=== PATIENT | male | born 1985 | race Caucasian/White ===

== ENCOUNTER 2020-06-23 22:51 | Emergency (ER) | payer MEDICAID, SELFPAY ==
[2020-06-23 22:53] VITALS: BP 171/98; PULSE 74; RESP 20; TEMP 36.7; O2SAT 95; BMI 24.3
--- NOTE | 2020-06-23 23:37 | ED.DCSUM_ITS ---
History of Present Illness Chief Complaint: Overdose Narrative: Patient presenting for evaluation secondary to an overdose. Patient is unsure if he took anything, states that he did not take anything, and reports that he was drinking ice tea from an orange bottle. Patient apparently was found unresponsive EMS was contacted and he responded to 2 doses of naloxone. Patient denies being suicidal or homicidal. Patient does report that he is feeling chilled and nauseous. He tells me that he is been sober since he was let out Past Medical History - Allergies and Home Meds Allergies/Adverse Reactions: Allergies propoxyphene napsylate [From Darvocet-N 100] Allergy (Verified 06/23/20 22:52) Hives Primary Care Physician: Care Physician,No Primary [Primary Care Provider] - Prior records reviewed: Yes Past Medical History: - - Past history of opiate abuse Smoking Status: Current every day smoker Drugs: Heroin Review of Systems All systems negative except as indicated General: Reports: Chills Eyes: Denies: Visual changes - bilaterally, Diplopia ENT: Denies: Rhinorrhea, Sore throat Cardiovascular: Denies: Chest pain, Palpitations Respiratory: Denies: Dyspnea, Cough, Dyspnea on exertion Gastrointestinal: Reports: Nausea Genitourinary: Denies: Dysuria, Hematuria, Frequency Musculoskeletal: Denies: Back pain, Extremity Pain Skin: Denies: Rash, Wounds Neurological: Denies: Headache, Weakness, Numbness Physical Exam Vital Signs/Narrative: Vital Signs Temp Pulse Resp BP Pulse Ox 06/23/20 22:53 98.0 F 74 20 H 171/98 H 95 General: Well nourished, Well developed Head: Normocephalic, Atraumatic Eyes: EOMI ENT: Moist mucous membranes Cardiovascular: Regular rate Respiratory: No distress Extremities: Nontender Skin: Normal color, No rash Neurological: Alert, Oriented x3, Normal Strength, Normal Sensation Psychological: Normal affect Diagnostic/Tx/Re-eval - Medical Decision Making Patient presented after an opiate overdose. Patient will be observed in the emergency department for 90 minutes. Should he not require any supplemental oxygen or repeat doses of naloxone he will be discharged with outpatient follow- up for opiate dependence. Prior to the patient's full observation. He reports that he wishes to sign out AGAINST MEDICAL ADVICE he is not currently intoxicated and he has decision- making capacity. ED Disposition - Plan for ED Patient: Disposition: Against Medical Advice Diagnosis: Opiate overdose Instructions: ED Overdose Opiate Additional Instructions: Followup with [id number] [place] [address]
--- NOTE | 2020-06-23 23:52 | ED.RN ---
RN TO BEDSIDE TO APPLY PULSE OX. PT STATES THAT HE WANTS TO LEAVE. RN EXPLAINED THE IMPORTANCE OF BEING MONITORED AFTER RECEIVING NARCAN AND THE PATIENT STATES HE STILL WANTS TO LEAVE. RN NOTIFIED DR. BOWLES. DR BOWLES AT THE BEDSIDE TO EXPLAIN THE IMPORTANCE OF MONITORING. PT STILL WANTS TO LEAVE.
== END 2020-06-23 23:58 | disposition left against medical advice (07) ==
LOC: ED 23:48
PROVIDERS: Emergency Provider Emergency Medicine
DX: T40.601A Poisoning by unspecified narcotics, accidental (unintentional), initial encounter (principal); R11.0 Nausea; Y92.9 Unspecified place or not applicable; F17.200 Nicotine dependence, unspecified, uncomplicated
CPT/HCPCS: 99283; 99285

== ENCOUNTER 2021-11-05 09:12 | Emergency (ER) | payer MEDICAID, SELFPAY ==
[2021-11-05 09:13] VITALS: BP 157/97; PULSE 111; RESP 18; TEMP 36.6; O2SAT 99; BMI 24.3
--- NOTE | 2021-11-05 09:28 | VDLE_ITS ---
Reason For Study: pain RIGHT GSV is normal. CFV is compressible, spontaneous, phasic, competent and demonstrates normal augmentation. FV is compressible, spontaneous, phasic, competent and demonstrates normal augmentation. POP V is compressible, spontaneous, phasic, competent and demonstrates normal augmentation. T/P Trunk is compressible. PTV is compressible. RT PerV is compressible. Procedure This is a venous duplex using B-mode, color flow and spectral Doppler. Exam performed portable in ED. The exam was abbreviated due to the COVID 19 protocol. The exam was diagnostic. A preliminary report was called and/or faxed to ED staff. VL/Venous Duplex US, Unilateral Interpretation Summary Deep veins of the right lower extremity are patent and compressible segmentally . There is no evidence of right lower extremity deep vein thrombosis. Valvular competence stevo ears intact within the proximal deep venous system on the right . The right great saphenous vein a ppears patent and compressible segmentally. Ordering Physician: Sidney Neal Performed By: Tashi Greer RVT
--- NOTE | 2021-11-05 09:29 | EKG12_ITS ---
Test Reason : Blood Pressure : / mmHG Vent. Rate : 083 BPM Atrial Rate : 083 BPM P-R Int : 146 ms QRS Dur : 090 ms QT Int : 376 ms P-R-T Axes : 060 079 058 degrees QTc Int : 441 ms Normal sinus rhythm Normal ECG Confirmed by DAYSI BOWMAN, MORELIA ([id number]), assistant editor ARLET ANSARI ([id number]) on 11/09/2021 11:12:34 AM Referred By: GIOVANNY Confirmed By:MORELIA TAVAREZ MD
--- NOTE | 2021-11-05 09:31 | ED.VIS.LOWEX ---
HPI History of Present Illness HPI Narrative: Patient who denies significant past medical history presents with right foot pain and swelling along with redness that has had for at least 3 days. He states his symptoms began 3 days ago with numbness of his second toe and redness at the base. He was seen at [facility] where he states they performed x-rays and were going to admit him overnight for antibiotics, but he states he had to go to work so declined. While they wrote him a prescription for antibiotics he has been unable to pick them up from the pharmacy. He denies any fevers or chills. No nausea or vomiting. No other symptoms with the exception of his right foot becoming more red, swollen, and painful. He took Motrin a few days ago without relief of his symptoms. 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 He denies any historical trauma. Pain is worse with standing and walking, but is constant. Chief Complaint: Lower Extremity Injury PFSH PFS Medical History no medical history Home Medications ibuprofen 800 mg PO Q6H PRN #20 tab 11/05/21 [Rx Last Taken Unknown] sulfamethoxazole-trimethoprim [Bactrim DS] 1 tab PO BID #20 tab 11/05/21 [Rx Last Taken Unknown] Allergy/AdvReac Type Severity Reaction Status Date / Time propoxyphene napsylate Allergy Hives Verified 11/05/21 09:15 [From [facility]-N 100] Family History no significant family his Surgical History no surgical history Social History Smoking Status: Current every day smoker tobacco type: cigarettes ROS ROS ED ROS Narrative Constitutional: No fever, no chills. HEENT: No sore throat. No neck pain. No loss of vision. No rhinorrhea. Cardiovascular: No chest pain. No palpitations. No pedal edema. Respiratory: No cough, no shortness of breath. Abdominal: No abdominal pain. No nausea. No vomiting. Genitourinary: No dysuria. No hematuria. Musculoskeletal: No myalgias. No arthralgias. Neurologic: No headaches. No dizziness. No lightheadedness. Skin: No rash. Redness to right foot at base of toes and midfoot. Psychiatric: No depression. No anxiety. EXAM Physical Exam Narrative Exam Narrative: Afebrile. Vital signs noted. Nontoxic-appearing. HEENT: Normocephalic. Atraumatic. PERRL, EOMI. Neck soft and supple. No point tenderness or step off. Cardiovascular: Tachycardia, regular. No murmurs, rubs, or gallops appreciated. Respiratory: No tachypnea. Lungs clear to auscultation bilaterally. Gastrointestinal: Abdomen soft, nontender, with normoactive bowel sounds. No rebound or guarding. Neurological: Awake. Alert. Nonfocal, nonlateralizing. Skin: No rash. Positive erythema at base of second, third, and fourth toes on his right foot. Positive erythema diffusely right foot laterally, with concentration over the tarsal bones. No pallor. Musculoskeletal: Right sided pedal edema. No pain of calf. Dopplerable dorsalis pedis pulse (by RN) Psychiatric: Tearful on examination. Const Vital Signs: 11/05/21 09:13 11/05/21 10:44 11/05/21 11:25 Temperature 97.9 F 98.9 F Temperature Source Temporal Temporal Pulse Rate 111 H 82 77 Respiratory Rate 18 10 L Blood Pressure 157/97 H 134/79 H 132/92 H Blood Pressure Mean 117 97 105 Pulse Ox 99 98 Oxygen Delivery Method Room Air Room Air MDM MDM MDM Narrative Medical decision making narrative: Concern is more for cellulitis. Sepsis work-up was pursued. He has normal white count of 8.9, hemoglobin 11.4. Platelet count is normal at 225. Lactic acid is normal. Blood cultures are pending. His pulse has come down to 82, and his EKG demonstrates normal sinus rhythm at 83 bpm without ectopy or acute ST changes. Basic metabolic panel is grossly unremarkable. In discussion with the patient, after he received Toradol, he states that his pain has improved. 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 He states that they are at the drug [facility] [place]. He did receive intravenous antibiotics here in the form of vancomycin and Zosyn. Given his negative work-up here, I do feel that he would be able to be discharged safely home after the venous ultrasound of his right lower extremity. The ultrasound of the right lower extremity is negative. There is no evidence of DVT. Upon repeat examination, he is resting comfortably. He has a normal heart rate. 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 I also called in a prescription for naproxen for him and another prescription for antibiotics in the form of Bactrim. Return instructions to the emergency department were reviewed. I feel he can be discharged safely home with follow-up. He was referred to Dr. Porter who is on-call for outpatient no doc. Disposition is discharged home in stable condition. Lab Data Attestation: I reviewed the patient's lab results. Labs: Laboratory Results - last 24 hr 11/05/21 11/05/21 11/05/21 09:47 09:47 09:47 WBC 8.9 RBC 3.82 L Hgb 11.4 L Hct 35.3 L MCV 92.4 MCH 29.8 MCHC 32.3 RDW Std Deviation 45.0 H RDW Coeff of Han 13.2 Plt Count 225 MPV 9.5 Immature Gran % (Auto) 0.300 Neut % (Auto) 70.4 H Lymph % (Auto) 19.5 Cass % (Auto) 8.1 Eos % (Auto) 1.5 Baso % (Auto) 0.2 Absolute Neuts (auto) 6.2 Absolute Lymphs (auto) 1.73 Nucleated RBC % 0 Sodium 137 Potassium 3.7 Chloride 102 Carbon Dioxide 31.0 Anion Gap 4 L BUN 7 Creatinine 0.85 Estim Creat Clear Calc 114.00 Est GFR (MDRD) Af Amer 130 Est GFR (MDRD) Non-Af 107 BUN/Creatinine Ratio 8.3 L Glucose 100 Lactic Acid 1.1 Calcium 8.8 Total Bilirubin 0.60 AST 56 H ALT 55 Alkaline Phosphatase 120 H Total Protein 7.3 Albumin 2.9 L Globulin 4.4 H Albumin/Globulin Ratio 0.7 L Discharge Plan Triage Chief Complaint: Lower Extremity Injury ED Provider: Sidney Neal Dx/Rx/DC Orders Clinical Impression: Cellulitis of foot, right Instructions: ED Cellulitis Prescriptions: New ibuprofen 800 mg tablet 800 mg PO Q6H PRN (Reason: pain) Qty: 20 RF: 0 sulfamethoxazole-trimethoprim [Bactrim DS] 800-160 mg tablet 1 tab PO BID Qty: 20 RF: 0 Primary Care Provider: Care Physician,No Primary Referrals: Christina Porter DO [NON-STAFF] - 3-5 Days if not improving Care Physician,No Primary [Primary Care Provider] - Disposition Disposition: Home, Self Care
[2021-11-05] MEDS: Ketorolac 30 MG/ML Syringe IV (09:48)
[2021-11-05 09:54] LABS: Absolute Lymphocyte Count 1.73 X10^3/uL (0.83-4.51); Absolute Neutrophil Count 6.2 X10^3/uL (2.0-7.7); Basophil# 0.02 X10^3/uL; Basophil% 0.2 % (0-1); Eosinophil# 0.13 X10^3/uL; Eosinophils% 1.5 % (0-5); Hematocrit 35.3 % (40-54); Hemoglobin 11.4 g/dL (13.0-16.5); Lymphocyte # 1.73 X10^3/ul (0.83-4.51); Lymphocyte % 19.5 % (19-41); Mean Corp Hgb Conc 32.3 g/dL (32-36); Mean Corpuscular Hgb 29.8 pg (27.0-32.0); Mean Corpuscular Volume 92.4 fL (80-94); Mean Platelet Vol. 9.5 fl (6.2-12.0); Monocyte# 0.72 X10^3/uL; Monocyte% 8.1 % (0-10); NRBC Flagged by Analyzer 0 % (0-5); Neutrophil # 6.22 X10^3/uL (2.7-7.7); Neutrophil % 70.4 % (47-70); Platelet Count 225 K/mm3 (150-450); RBC Distribution Width CV 13.2 % (11.6-14.6); Red Blood Count 3.82 M/mm3 (4.6-6.2); White Blood Count 8.9 K/mm3 (4.4-11.0)
[2021-11-05 10:10] LABS: ALB/GLOB Ratio 0.7 RATIO (0.9-2.4); AST(SGOT) 56 U/L (15-37); Alanine Aminotransfer ALT/SGPT 55 U/L (16-61); Albumin, Serum 2.9 g/dL (3.2-5.0); Alkaline Phosphatase 120 U/L (45-117); Anion Gap 4 (5-15); BUN 7 mg/dL (7-18); BUN/Creat Ratio 8.3 RATIO (10-20); Calcium,Total 8.8 mg/dL (8.5-10.1); Chloride 102 mmol/L (98-107); Creatinine, Serum 0.85 mg/dL (0.70-1.30); EST Glomerular Filtration Rate 107 mL/min (>60); Est Glom Filt Rate - Afr Amer 130 mL/min (>60); Globulin 4.4 g/dL (2.2-4.2); Glucose 100 mg/dL (74-106); Potassium 3.7 mmol/L (3.5-5.1); Protein, Total 7.3 g/dL (6.4-8.2); Sodium Level 137 mmol/L (136-145)
[2021-11-05 10:23] LABS: Lactic Acid 1.1 mmol/L (0.4-1.9)
[2021-11-05 10:44] VITALS: BP 134/79; PULSE 82; RESP 10; TEMP 37.2; O2SAT 98
--- NOTE | 2021-11-05 10:59 | NURSING ---
+ R pedal pulse per doppler, Dr. Neal aware
--- NOTE | 2021-11-05 11:24 | NURSING ---
Dr. Neal made aware pt negative for DVT RLE.
[2021-11-05 11:25] VITALS: BP 132/92; PULSE 77
[2021-11-05 12:41] VITALS: BP 134/81; PULSE 81; RESP 11; TEMP 36.6; O2SAT 97
== END 2021-11-05 12:42 | disposition home or self-care (01) ==
PROVIDERS: Emergency Provider Emergency Medicine; Visit Provider Emergency Medicine
DX: L03.115 Cellulitis of right lower limb (principal); M79.671 Pain in right foot; F17.210 Nicotine dependence, cigarettes, uncomplicated
CPT/HCPCS: 80053; 83605; 85025; 87040; 93005; 93971; 96365; 96366; 96367; 96375; 99284; J7030; J7040; A4216